=== PATIENT | male | born 1975 | race Asian ===

== ENCOUNTER 2017-05-15 22:32 | Emergency (ER) | payer BC ==
[~2017-05-15] VITALS: Ht 162.6 cm; Wt 95.5 kg
[~2017-05-15 22:32] MED LIST: FLEXERIL 1010 MG/TAB PO; NORCO 325 MG-51 TAB PO; NORCO 325 MG-7.1 TAB PO
[2017-05-15 22:35] VITALS: BP 134/85; TEMP 99.8
[2017-05-15 23:22] LABS: INFLUENZA A NEGATIVE; INFLUENZA B NEGATIVE
[2017-05-16 00:12] VITALS: PULSE 75
== END 2017-05-16 00:12 | disposition home or self-care (01) ==
LOC: COL.ER 22:32
PROVIDERS: Nurse Practitioner
DX: J02.0 Streptococcal pharyngitis (principal); Z98.890 Other specified postprocedural states
CPT/HCPCS: J0561

== ENCOUNTER 2020-07-15 19:43 | Emergency (ER) | payer BC, OTHER ==
[~2020-07-15] VITALS: Ht 162.6 cm; Wt 104.5 kg
[2020-07-15 19:51] VITALS: TEMP 97.2
[2020-07-15 20:27] LABS: BASO % 0.2 % (0.0-2.0); EOS # 0.1 (0.0-0.7); EOS % 2.2 % (0-4.0); GRAN # 2.2 (1.4-6.5); GRAN % 40.5 % (42.2-75.2); HEMATOCRIT 44.4 % (42.0-52.0); HEMOGLOBIN 15.1 g/dl (13.5-18.0); LYMPH # 2.5 (1.2-3.4); LYMPH % 45.6 % (20.0-51.0); MEAN CELL VOLUME 91 fl (80.0-100.0); MEAN CORPUSCULAR HEMOGLOBIN 31 pg (27.0-31.0); MEAN CORPUSCULAR HGB CONC 34 g/dl (33.0-37.0); MEAN PLATELET VOLUME 9.7 fl (7.4-10.4); MONO # 0.6 (0.1-0.6); MONO % 11.1 % (1.7-9.3); PLATELET COUNT 247 K/mm3 (130-400); RED BLOOD COUNT 4.87 M/mm3 (4.20-5.60); REDCELL DISTRIBUTION WIDTH-CV 12.3 % (11.5-14.5)
[2020-07-15 20:36] LABS: BILIRUBIN,TOTAL 0.3 mg/dL (0.0-1.0); CALCIUM 8.8 mg/dL (8.4-10.2); CREATININE, serum 0.91 (0.66-1.25); POTASSIUM 3.5 mmol/L (3.4-5.0); TOTAL PROTEIN 7.5 gm/dL (6.4-8.2)
[2020-07-15 20:59] LABS: COLLECTION METHOD CLEAN CATCH
[2020-07-15 21:04] LABS: MUCOUS Present /lpf; PH 6 (5-8); SQUAMOUS EPITHELIAL 0-2 /hpf; URINE APPEARANCE Hazy; URINE BACTERIA None Seen /hpf; URINE BILIRUBIN Negative (NEGATIVE); URINE BLOOD Negative (NEGATIVE); URINE COLOR Yellow; URINE GLUCOSE Negative (NEGATIVE); URINE KETONE Negative (NEGATIVE); URINE LEUKOCYTE ESTERASE Negative (NEGATIVE); URINE NITRATE Negative (NEGATIVE); URINE PROTEIN(semi-quant) Negative (NEGATIVE); URINE RBC 0-2 /hpf; URINE UROBILINOGEN >=4.0 mg/dL (NEGATIVE)
[2020-07-15] MEDS ORDERED: ZOFRAN ODT4 MG PO (22:23)
[2020-07-15 22:28] VITALS: BP 122/80; PULSE 67
== END 2020-07-15 22:32 | disposition home or self-care (01) ==
LOC: COL.ER 19:43
PROVIDERS: Emergency Medicine
DX: R10.9 Unspecified abdominal pain (principal); R94.5 Abnormal results of liver function studies; E66.9 Obesity, unspecified
CPT/HCPCS: J2405; J7120